=== PATIENT | male | born 1955 | race Caucasian/White ===

== ENCOUNTER 2017-06-20 19:00 | Observation (INO) | payer BC ==
[~2017-06-20] VITALS: Ht 177.8 cm; Wt 739.0 kg
[2017-06-20 19:05] VITALS: BP 194/99; PULSE 97; RESP 16; TEMP 97.7; O2SAT 100
[2017-06-20 19:35] VITALS: BP 174/92; PULSE 81; RESP 16; O2SAT 100
[2017-06-20 20:00] VITALS: BP_SYST 158; BP_SYST 171; BP_SYST 188; BP_DIAS 85; BP_DIAS 88; BP_DIAS 97; RESP 16
[2017-06-20] MEDS ORDERED: SODIUM CHLORIDE 0.9% FLUSH 10 ML FLUSH IVF PRN (20:00)
--- NOTE | 2017-06-20 20:06 | PD ---
HPI Chief Complaint: Dizziness Time Seen by Provider: 19:53 Travel History International Travel<30 days: No Contact w/Intl Traveler<30days: No Traveled to known affect area: No History of Present Illness HPI 62-year-old male presents to the emergency department by private transportation the care of family for an episode of double vision that occurred around 3:30 to 3:45 this afternoon of approximately 5 minutes duration. Patient states he also had brief dizziness that has also resolved. Patient states she's been left with residual fatigue. Patient states he also had an episode of a rapid heartbeat and broke out into a sweat which is also resolved. On his way home from [place] where the event occurred he has had episodes of sweats and chills. Patient denies any fever. Patient states that proximal me 3:30 to see 40 5 PM this afternoon most sitting at his desk and [place] he was looking at some papers and at his computer and briefly experienced double vision while he was trying to read the computer and the paperwork and when he looked across the [place]. Patient not have headache did not have confusion did not have loss of vision did not have any type of nausea or vomiting also did not experience any weakness of the upper or lower extremities. Patient states he was able to interact and converse appropriately with his colleagues and subsequently decided to drive 1 mile to his son's place of work as he works nearby and had no difficulty with ambulating or driving his vehicle. Patient states en route to his way home he thought perhaps his blood sugar was low and did purchase of soda which he drank and then has to stop 2 times because of urinary frequency. Patient has a history of a sinus tachycardia which was reportedly evaluated by cardiology and was cleared approximately a year or urinary half ago and has not seen a software developer since also is followed by Dr. Aguilar is his primary care provider and was treated by Dr. Estrada in 2009 prostate cancer with prostatectomy. Patient states he takes an [id number] Fish oil and cinnamon for management of borderline cholesterol issues and blood sugar issues. Patient did not have diagnosed hypertension. Patient does not take any prescription medications. Patient is a nonsmoker. Patient occasionally drinks alcohol at dinner. Patient's had no recent febrile illness. Patient currently has no symptoms other than feeling mildly fatigued at this time. Patient states he had something similar to this approximately 2 years ago and was not evaluated for that episode and decided that he should be evaluated today. Patient denies headache, loss of vision, facial weakness, confusion, difficulty with speech, difficulty swallowing, upper or lower extremity numbness tingling or weakness, balance disturbance, palpitations, chest pain, shortness of breath, nausea, vomiting, referred neck, jaw, shoulder, arms, back , or abdominal pain, denies abdominal cramping or diarrhea, denies any injury, denies any recent long distance travel, denies any recent surgical procedure or protracted bedrest, denies any febrile illness. Patient rates pain 0/10 in intensity. Patient again states episode of visual disturbance last approximately 5 minutes and has not been recurrent. PFSH Past Medical History Narrative Medical Sinus tachycardia, borderline cholesterol issues, borderline blood sugar issues , prostate cancer; prostatectomy; no tobacco use: Nursing notes reviewed Cardiovascular Problems: Yes (sinus tach) Respiratory: Yes Social History Alcohol Use: Yes Tobacco Use: No Allergies-Medications (Allergen,Severity, Reaction): Uncoded Allergies: bronchial dilaters (Adverse Reaction, Unknown, tachycardia, 06/20/17) Reported Meds & Prescriptions Reported Meds & Active Scripts Active Reported Allopurinol 300 Mg Tab 300 Mg PO DAILY Narrative Medication no prescription medications Review of Systems Except as stated in HPI: all other systems reviewed are Neg General / Constitutional: No: Fever, Chills Eyes: Positive: Diploplia ("approximately 5 minutes duration around 3:30PM or 3 :45 PM), No: Blurred Vision, Photophobia, Drainage HENT: Positive: Lightheadedness, No: Headaches, Vertigo Cardiovascular: Positive: Tachycardia, Diaphoresis, No: Chest Pain or Discomfort, Palpitations Respiratory: No: Shortness of Breath Gastrointestinal: No: Nausea, Vomiting, Diarrhea, Abdominal Pain Genitourinary: No: Dysuria Musculoskeletal: No: Myalgias, Arthralgias Skin: No Rash Neurologic: Positive: Weakness, Dizziness (brief not now), No: Syncope, Focal Abnormalities, Coordination Problem, Ataxia, Headache, Change in Mentation, Slurred Speech, Paresthesia, Incontinence, Seizures, Sensory Disturbance Psychiatric: No: Anxiety Hematologic/Lymphatic: No: Lymph Node Enlargement Physical Exam Narrative GENERAL: Well-developed well-nourished male in no acute distress no respiratory distress articulate with GCS of 15 SKIN: Warm and dry. HEAD: Atraumatic. Normocephalic. EYES: Pupils equal and round. Extraocular muscles intact. No scleral icterus. No injection or drainage. ENT: No nasal bleeding or discharge. Mucous membranes pink and moist. NECK: Trachea midline. No JVD. No carotid bruits. CARDIOVASCULAR: Regular rate and rhythm. RESPIRATORY: No accessory muscle use. Clear to auscultation. Breath sounds equal bilaterally. GASTROINTESTINAL: Abdomen soft, non-tender, nondistended. Hepatic and splenic margins not palpable. MUSCULOSKELETAL: Extremities without clubbing, cyanosis, or edema. No obvious deformities. NEUROLOGICAL: Awake and alert. No obvious cranial nerve deficits. Motor grossly within normal limits. Five out of 5 muscle strength in the arms and legs. Sensory exam grossly intact as tested bilaterally. No pronator drift. No limb ataxia. DTRs 2+ and equal. Normal speech. PSYCHIATRIC: Appropriate mood and affect; insight and judgment normal. Data Data Last Documented VS Vital Signs Date Time Temp Pulse Resp B/P (MAP) Pulse Ox O2 Delivery O2 Flow Rate FiO2 06/20/17 21:20 83 16 144/83 (103) 100 Room Air 06/20/17 19:05 97.7 Orders Orders Electrocardiogram (06/20/17 19:54) Prothrombin Time / Inr (Pt) (06/20/17 19:54) Act Partial Throm Time (Ptt) (06/20/17 19:54) Complete Blood Count With Diff (06/20/17 19:54) Comprehensive Metabolic Panel (06/20/17 19:54) Creatine Kinase (Cpk) (06/20/17 19:54) Troponin I (06/20/17 19:54) Urinalysis - C+S If Indicated (06/20/17 19:54) Ct Brain W/O Iv Contrast(Rout) (06/20/17 19:54) Chest, Single Ap (06/20/17 19:54) Ecg Monitoring (06/20/17 19:54) Iv Access Insert/Monitor (06/20/17 19:54) Oximetry (06/20/17 19:54) Sodium Chloride 0.9% Flush (Ns Flush) (06/20/17 20:00) Orthostatic Vital Signs (06/20/17 19:54) Magnesium (Mg) (06/20/17 19:54) Thyroid Stimulating Hormone (06/20/17 19:54) Blood Glucose (06/20/17 20:07) Admit Order (Ed Use Only) (06/20/17 ) Certified Court Interpreter / Telemetry PAMELA.Q8H (06/20/17 21:27) Diet Heart Healthy (06/21/17 Breakfast) Activity Oob With Assistance (06/20/17 21:27) Notify Dr: Other (06/20/17 21:27) Labs Laboratory Tests Test 06/20/17 20:00 06/20/17 20:20 Urine Color YELLOW Urine Turbidity CLEAR Urine pH 7.5 Urine Specific [place] 1.009 Urine Protein NEG mg/dL Urine Glucose (UA) NEG mg/dL Urine Ketones NEG mg/dL Urine Occult Blood NEG Urine Nitrite NEG Urine Bilirubin NEG Urine Leukocyte Esterase NEG Urine Squamous Epithelial Cells 0-5 /hpf Microscopic Urinalysis Comment CATH-CULT NOT IND White Blood Count 5.3 TH/MM3 Red Blood Count 5.24 MIL/MM3 Hemoglobin 16.9 GM/DL Hematocrit 49.9 % Mean Corpuscular Volume 95.2 FL Mean Corpuscular Hemoglobin 32.1 PG Mean Corpuscular Hemoglobin Concent 33.8 % Red Cell Distribution Width 12.4 % Platelet Count 223 TH/MM3 Mean Platelet Volume 7.0 FL Neutrophils (%) (Auto) 72.3 % Lymphocytes (%) (Auto) 18.9 % Monocytes (%) (Auto) 6.0 % Eosinophils (%) (Auto) 0.8 % Basophils (%) (Auto) 2.0 % Neutrophils # (Auto) 3.9 TH/MM3 Lymphocytes # (Auto) 1.0 TH/MM3 Monocytes # (Auto) 0.3 TH/MM3 Eosinophils # (Auto) 0.0 TH/MM3 Basophils # (Auto) 0.1 TH/MM3 CBC Comment AUTO DIFF Prothrombin Time 10.9 SEC Prothromb Time International Ratio 1.0 RATIO Activated Partial Thromboplast Time 31.1 SEC Blood Urea Nitrogen 16 MG/DL Creatinine 1.10 MG/DL Random Glucose 92 MG/DL Total Protein 7.9 GM/DL Albumin 4.3 GM/DL Calcium Level 9.0 MG/DL Magnesium Level 2.4 MG/DL Alkaline Phosphatase 52 U/L Aspartate Amino Transf (AST/SGOT) 37 U/L Alanine Aminotransferase (ALT/SGPT) 36 U/L Total Bilirubin 0.7 MG/DL Sodium Level 140 MEQ/L Potassium Level 4.1 MEQ/L Chloride Level 103 MEQ/L Carbon Dioxide Level 28.9 MEQ/L Anion Gap 8 MEQ/L Estimat Glomerular Filtration Rate 68 ML/MIN Total Creatine Kinase 275 U/L Troponin I LESS THAN 0.02 NG/ML Thyroid Stimulating Hormone 3rd Gen 3.530 uIU/ML MDM Medical Decision Making Medical Screen Exam Complete: Yes Emergency Medical Condition: Yes Medical Record Reviewed: Yes Interpretation(s) EKG: Normal sinus rhythm rate [address] elevation injury pattern or ectopy noted normal axis and intervals UA: wnl Last Impressions Head CT 06/20/171953 Signed Impressions: Service Date/Time: June 20:13 - CONCLUSION: Normal examination. Parvez Bruce MD Chest X-Ray 06/20/171953 Signed Impressions: Service Date/Time: June 20:03 - CONCLUSION: Normal examination. Parvez Bruce MD Differential Diagnosis TIA, CVA, arrhythmia, electrolyte disturbance, ACS, dissection, viral syndrome Narrative Course Patient placed on site monitor with continuous pulse oximetry; NIHSS:0 @ 9:20 NIHSS: 0, denies any recurrent visual disturbance; ambulated to the bathroom without vision disturbance or balance disturbance. Patient states after he turned quickly after using the bathroom he had transient seconds induration dizziness that resolved spontaneously and had no recurrence of this and had no effect on his ability to ambulate back to the exam room. Discussed patient with on-call [facility] [place] MD Dr Braswell will admit for TIA OBS to her service with MR studies and neurology consult in the a.m. Physician Communication Physician Communication discussed with Dr Braswell --OBS to [facility] service Diagnosis Primary Impression: TIA (transient ischemic attack) Admitting Information Admitting Physician Requests: Observation Debi Putnam MD Jun 20, 2017 20:06
[2017-06-20] MEDS ORDERED: ALLO300T2 PO (20:17)
--- NOTE | 2017-06-20 20:28 | RADRPT ---
EXAM DATE/TIME: 06/20/2017 20:03 [facility] COMPARISON: No previous studies available for comparison. INDICATIONS : Weakness, dizziness, and double vison today. MEDICAL HISTORY : None. SURGICAL HISTORY : None. ENCOUNTER: Initial ACUITY: 1 day PAIN SCORE: 0/10 LOCATION: Bilateral chest FINDINGS: A single view of the chest demonstrates the lungs to be symmetrically aerated without evidence of mas s, infiltrate or effusion. The cardiomediastinal contours are unremarkable. Osseous structures are intact. CONCLUSION: Normal examination. Parvez Bruce MD on June 20, 2017 at 20:26 Board Certified Radiologist. This report was verified electronically.
[2017-06-20 20:39] VITALS: BP 146/83; PULSE 82; RESP 16; O2SAT 100
[2017-06-20 20:43] LABS: BLOOD, URINE NEG (NEG); GLUCOSE,URINE NEG (NEG); KETONE, URINE NEG (NEG); NITRITE,URINE NEG (NEG); PH, URINE 7.5 (5.0-8.5)
[2017-06-20 20:45] LABS: AUTOMATED NEUTROPHIL # 3.9 TH/MM3 (1.8-7.7); BASOPHIL # 0.1 TH/MM3 (0-0.2); EOSINOPHIL % 0.8 % (0.0-4.0); HEMATOCRIT 49.9 % (39.0-51.0); LYMPH % 18.9 % (9.0-44.0); MEAN CELL VOLUME 95.2 FL (80.0-100.0); MEAN CORPUSCULAR HEMOGLOBIN 32.1 PG (27.0-34.0); MEAN CORPUSCULAR HGB CONC 33.8 % (32.0-36.0); NEUT % 72.3 % (16.0-70.0); PLATELET COUNT 223 TH/MM3 (150-450); RED BLOOD COUNT 5.24 MIL/MM3 (4.50-5.90); RED CELL DISTRIBUTION WIDTH 12.4 % (11.6-17.2); WHITE BLOOD COUNT 5.3 TH/MM3 (4.0-11.0)
[2017-06-20 20:49] LABS: HEMO FLAGS AUTO DIFF
[2017-06-20 20:51] LABS: URINE COLOR YELLOW (YELLW/STRAW)
[2017-06-20 20:52] LABS: COMMENT (UR) CATH-CULT NOT IND; CULTURE IF INDICATED CATH CULTURE NOT IND; SQUAMOUS EPITHELIAL CELL URINE 0-5 /hpf (0-5)
--- NOTE | 2017-06-20 20:55 | RADRPT ---
EXAM DATE/TIME: 06/20/2017 20:13 [facility] COMPARISON: No previous studies available for comparison. INDICATIONS : Double vision today. No LOC or injury RADIATION DOSE: 61.10 CTDIvol (mGy) MEDICAL HISTORY : None SURGICAL HISTORY : None. ENCOUNTER: Initial ACUITY: 1 day PAIN SCALE: 0/10 LOCATION: cranial TECHNIQUE: Multiple contiguous axial images were obtained of the head. Using automated exposure control and adj ustment of the mA and/or kV according to patient size, radiation dose was kept as low as reasonably a chievable to obtain optimal diagnostic quality images. DICOM format image data is available electro nically for review and comparison. FINDINGS: CEREBRUM: The ventricles are normal for age. No evidence of midline shift, mass lesion, hemorrhage or acute in farction. No extra-axial fluid collections are seen. POSTERIOR FOSSA: The cerebellum and brainstem are intact. The 4th ventricle is midline. The cerebellopontine angle i s unremarkable. EXTRACRANIAL: The visualized portion of the orbits is intact. SKULL: The calvaria is intact. No evidence of skull fracture. CONCLUSION: Normal examination. Parvez Bruce MD on June 20, 2017 at 20:53 Board Certified Radiologist. This report was verified electronically.
[2017-06-20 20:58] LABS: CHLORIDE 103 MEQ/L (98-107); POTASSIUM 4.1 MEQ/L (3.5-5.1); SODIUM (NA) 140 MEQ/L (136-145)
[2017-06-20 21:02] LABS: ANION GAP 8 MEQ/L (5-15); BICARBONATE 28.9 MEQ/L (21.0-32.0); BLOOD UREA NITROGEN 16 MG/DL (7-18); MAGNESIUM 2.4 MG/DL (1.5-2.5)
[2017-06-20 21:04] LABS: APTT (PATIENT) 31.1 SEC (24.3-30.1); PROTHROMBIN TIME - PATIENT 10.9 SEC (9.8-11.6)
[2017-06-20 21:05] LABS: ALT (GPT) 36 U/L (12-78); AST (GOT) 37 U/L (15-37); GLOMERULAR FILTRATION RATE 68 ML/MIN (>89)
[2017-06-20 21:07] LABS: TOTAL BILIRUBIN ADULT 0.7 MG/DL (0.2-1.0)
[2017-06-20 21:08] LABS: ALKALINE PHOSPHATASE 52 U/L (45-117); CREATINE KINASE 275 U/L (39-308)
[2017-06-20 21:20] VITALS: BP 144/83; PULSE 83; RESP 16; O2SAT 100
[2017-06-20] MEDS ORDERED: ASPIRIN 81 MG CHEW TAB CHEW ONE (21:30)
[2017-06-20] MEDS ORDERED: DEXTROSE 50% IN WATER 50 ML VIAL(D50) IV PUSH PRN (21:30)
[2017-06-20] MEDS ORDERED: LACTULOSE SYRUP 20 GM/30 ML CUP PO PRN (21:30)
[2017-06-20] MEDS ORDERED: BISACODYL 10 MG SUPP RECTAL PRN (21:30)
[2017-06-20] MEDS ORDERED: SENNOSIDES 8.6 MG TAB PO PRN (21:30)
[2017-06-20] MEDS ORDERED: GADODIAMIDE PF 287 MG/ML 20 ML VIAL (for RAD MRI) IV PUSH ONE (21:30)
[2017-06-20] MEDS ORDERED: SODIUM CHLORIDE 0.9% FLUSH 10 ML FLUSH IV FLUSH PRN (21:30)
[2017-06-20] MEDS ORDERED: GLUCAGON 1 MG/ML VIAL OTHER PRN (21:30)
[2017-06-20] MEDS ORDERED: ONDANSETRON HCL 4 MG/2 ML VIAL IVP PRN (21:30)
[2017-06-20] MEDS ORDERED: ENALAPRILAT 1.25 MG/ML VIAL IV PUSH PRN (21:30)
[2017-06-20] MEDS ORDERED: ACETAMINOPHEN/HYDROcodone 325 MG/5 MG TAB PO PRN (21:30)
[2017-06-20] MEDS ORDERED: ACETAMINOPHEN 325 MG TAB PO PRN (21:30)
[2017-06-20] MEDS ORDERED: MAGNESIUM HYDROXIDE SUSP 30 ML CUP PO PRN (21:30)
[2017-06-20 21:37] LABS: SCAN/DIFF AUTO DIFF CONFIRMED
[2017-06-20] MEDS ORDERED: MORPHINE SULFATE 2 MG/ML INJ IV PRN (21:45)
[2017-06-20] MEDS: SODIUM CHLOR 0.9% 1000 ML INJ 1,000 ML IV SCH (22:00)
[2017-06-20 22:18] VITALS: BP 138/85; PULSE 78; RESP 16; O2SAT 100
[2017-06-21] VITALS (11 sets, daily range): BP systolic 109–145; BP diastolic 61–91; PULSE 62–88; RESP 12–20; TEMP 96.5–98.5; O2SAT 95–99
[2017-06-21 05:24] LABS: AUTOMATED NEUTROPHIL # 2.3 TH/MM3 (1.8-7.7); BASOPHIL % 0.7 % (0.0-2.0); EOSINOPHIL # 0.1 TH/MM3 (0-0.4); EOSINOPHIL % 1.7 % (0.0-4.0); HEMATOCRIT 46.9 % (39.0-51.0); HEMO FLAGS DIFF FINAL; LYMPH % 38.6 % (9.0-44.0); LYMPHOCYTE # 1.8 TH/MM3 (1.0-4.8); MEAN CELL VOLUME 94.8 FL (80.0-100.0); MEAN CORPUSCULAR HEMOGLOBIN 31.3 PG (27.0-34.0); PLATELET COUNT 206 TH/MM3 (150-450); RED BLOOD COUNT 4.95 MIL/MM3 (4.50-5.90); WHITE BLOOD COUNT 4.7 TH/MM3 (4.0-11.0)
[2017-06-21] MEDS: SODIUM CHLOR 0.9% 1000 ML INJ 1,000 ML IV SCH (05:29)
[2017-06-21 05:38] LABS: CHLORIDE 107 MEQ/L (98-107); POTASSIUM 4.6 MEQ/L (3.5-5.1); SODIUM (NA) 143 MEQ/L (136-145)
[2017-06-21 05:42] LABS: ANION GAP 7 MEQ/L (5-15); BICARBONATE 29.4 MEQ/L (21.0-32.0); BLOOD UREA NITROGEN 16 MG/DL (7-18)
[2017-06-21 05:45] LABS: ALT (GPT) 32 U/L (12-78); AST (GOT) 21 U/L (15-37)
[2017-06-21 05:46] LABS: GLOMERULAR FILTRATION RATE 68 ML/MIN (>89)
[2017-06-21 05:47] LABS: TOTAL BILIRUBIN ADULT 0.9 MG/DL (0.2-1.0)
[2017-06-21 05:48] LABS: ALKALINE PHOSPHATASE 50 U/L (45-117)
[2017-06-21] MEDS: INSULIN ASPART SUPPLEMENTAL SCALE SQ SCH ×4 (07:48→21:00)
[2017-06-21] MEDS: SODIUM CHLORIDE 0.9% FLUSH 10 ML FLUSH IV FLUSH SCH ×2 (08:30→20:46)
[2017-06-21] MEDS: DOCUSATE SODIUM 50 MG/SENNA 8.6 MG TAB PO SCH ×2 (08:39→20:58)
[2017-06-21] MEDS ORDERED: ASPIRIN 81 MG CHEW TAB PO SCH (09:00)
[2017-06-21 09:33] LABS: HDL CHOLESTEROL 78.9 MG/DL (40.0-60.0); LDL CHOLESTEROL 96 MG/DL (0-99)
[2017-06-21] MEDS: ASPIRIN EC 325 MG TABEC PO SCH (11:22)
--- NOTE | 2017-06-21 13:40 | HHI.HP ---
[facility] Service [facility] Primary Care Physician Rick Aguilar DO Admission Diagnosis TIA Diagnoses: Travel History International Travel<30 Days: No Contact w/Intl Traveler <30 Da: No Traveled to Known Affected Are: No History of Present Illness This is a pleasant 62 year-old male with past medical history of borderline type 2 diabetes and borderline high cholesterol who presented to the ER complaining of a 5 minute history of horizontal diplopia. The patient works at a desk all day staring at computers and yesterday afternoon after being at his desk for several hours he looked up on the computer screens and had horizontal diplopia where 2 computer screens as 4. This was associated with some dizziness. The double vision went away when he covered either eye. He did not have any slurred speech paresthesias or unilateral weakness. After 5 minutes the symptoms went away. He did become somewhat anxious and had some palpitations and diaphoresis. He does not take aspirin. Review of Systems Constitutional: DENIES: Fever, Weight loss Eyes: COMPLAINS OF: Diplopia, DENIES: Eye pain, Vision loss Ears, nose, mouth, throat: DENIES: Throat pain, Odynophagia Respiratory: DENIES: Cough, Shortness of breath Cardiovascular: DENIES: Chest pain, Palpitations Gastrointestinal: DENIES: Abdominal pain, Vomiting Genitourinary: DENIES: Urgency, Dysuria Musculoskeletal: DENIES: Back pain, Neck pain Integumentary: DENIES: Pruritus, Rash Hematologic/lymphatic: DENIES: Lymphadenopathy Neurologic: DENIES: Abnormal gait, Headache Psychiatric: DENIES: Anxiety, Confusion Past Family Social History Past Medical History Borderline diabetes Borderline hyperlipidemia Gout Negative nuclear stress test in 2008 Heart murmur with trace valvular regurgitation followed by Dr. Ezequiel Jiménez Past Surgical History Pyloric stenosis surgery as an Radical prostatectomy in 2008 Bilateral inguinal hernia repair Right hydrocele surgery Pilonidal abscess I&D Right anterior cruciate ligament replacement in 1994 Reported Medications Allergies Uncoded Allergies Type Severity Reaction Last Updated Verified bronchial dilaters Adverse Reaction Unknown tachycardia 06/20/17 Active Scripts Medications Dose Route/Sig Max Daily Dose Days Date Category Allopurinol 300 Mg Tab 300 Mg PO DAILY 06/20/17 Reported Allergies: Uncoded Allergies: bronchial dilaters (Adverse Reaction, Unknown, tachycardia, 06/20/17) Family History His father had for TIAs Social History He smoked for a couple of years in his youth. Physical Exam Vital Signs Vital Signs Date Time Temp Pulse Resp B/P (MAP) Pulse Ox O2 Delivery O2 Flow Rate FiO2 06/21/17 08:12 21 06/21/17 08:00 97.7 88 12 145/91 (109) 98 06/21/17 06:27 98.0 78 20 118/74 (89) 99 06/21/17 02:35 99 21 06/21/17 01:26 82 06/21/17 00:15 98.0 78 18 112/74 (87) 99 06/20/17 23:18 06/20/17 22:18 78 16 138/85 (102) 100 Room Air 06/20/17 21:20 83 16 144/83 (103) 100 Room Air 06/20/17 20:39 82 16 146/83 (104) 100 Room Air 06/20/17 20:00 75 16 158/85 (109) 80 16 171/88 (115) 85 16 188/97 (127) 06/20/17 19:35 81 16 174/92 (119) 100 Room Air 06/20/17 19:35 100 Room Air 06/20/17 19:05 97.7 97 16 194/99 (130) 100 Physical Exam GENERAL: This is a well-nourished, well-developed patient, in no apparent distress. SKIN: No rashes, ecchymoses or lesions. Cool and dry. HEAD: Atraumatic. Normocephalic. EYES: Pupils equal round and reactive. Extraocular motions intact. No scleral icterus. No injection or drainage. NECK: Trachea midline. No JVD or lymphadenopathy. Supple, nontender, no meningeal signs. CARDIOVASCULAR: Regular rate and rhythm without murmurs, gallops, or rubs. RESPIRATORY: Clear to auscultation. Breath sounds equal bilaterally. No wheezes , rales, or rhonchi. GASTROINTESTINAL: Abdomen soft, non-tender, nondistended. No hepato-splenomegaly , or palpable masses. No guarding. MUSCULOSKELETAL: Extremities without clubbing, cyanosis, or edema. NEUROLOGICAL: Awake and alert. Cranial nerves II through XII intact. Motor and sensory grossly within normal limits. Five out of 5 muscle strength in all muscle groups. Normal speech. Laboratory Laboratory Tests Test 06/20/17 20:00 06/20/17 20:20 06/21/17 04:45 06/21/17 10:50 Urine Color YELLOW Urine Turbidity CLEAR Urine pH 7.5 Urine Specific [place] 1.009 Urine Protein NEG Urine Glucose (UA) NEG Urine Ketones NEG Urine Occult Blood NEG Urine Nitrite NEG Urine Bilirubin NEG Urine Leukocyte Esterase NEG Urine Squamous Epithelial Cells 0-5 Microscopic Urinalysis Comment CATH-CULT NOT IND White Blood Count 5.3 4.7 Red Blood Count 5.24 4.95 Hemoglobin 16.9 15.5 Hematocrit 49.9 46.9 Mean Corpuscular Volume 95.2 94.8 Mean Corpuscular Hemoglobin 32.1 31.3 Mean Corpuscular Hemoglobin Concent 33.8 33.0 Red Cell Distribution Width 12.4 12.0 Platelet Count 223 206 Mean Platelet Volume 7.0 7.1 Neutrophils (%) (Auto) 72.3 49.0 Lymphocytes (%) (Auto) 18.9 38.6 Monocytes (%) (Auto) 6.0 10.0 Eosinophils (%) (Auto) 0.8 1.7 Basophils (%) (Auto) 2.0 0.7 Neutrophils # (Auto) 3.9 2.3 Lymphocytes # (Auto) 1.0 1.8 Monocytes # (Auto) 0.3 0.5 Eosinophils # (Auto) 0.0 0.1 Basophils # (Auto) 0.1 0.0 CBC Comment AUTO DIFF DIFF FINAL Differential Comment AUTO DIFF CONFIRMED Prothrombin Time 10.9 Prothromb Time International Ratio 1.0 Activated Partial Thromboplast Time 31.1 Blood Urea Nitrogen 16 16 Creatinine 1.10 1.10 Random Glucose 92 88 Total Protein 7.9 6.6 Albumin 4.3 3.7 Calcium Level 9.0 8.4 Magnesium Level 2.4 Alkaline Phosphatase 52 50 Aspartate Amino Transf (AST/SGOT) 37 21 Alanine Aminotransferase (ALT/SGPT) 36 32 Total Bilirubin 0.7 0.9 Sodium Level 140 143 Potassium Level 4.1 4.6 Chloride Level 103 107 Carbon Dioxide Level 28.9 29.4 Anion Gap 8 7 Estimat Glomerular Filtration Rate 68 68 Total Creatine Kinase 275 Troponin I LESS THAN 0.02 Thyroid Stimulating Hormone 3rd Gen 3.530 Erythrocyte Sedimentation Rate 1 Triglycerides Level 144 Cholesterol Level 204 LDL Cholesterol 96 HDL Cholesterol 78.9 Cholesterol/HDL Ratio 2.58 Result Diagram: 06/21/175 06/21/17444 Imaging Last Impressions Head CT 06/20/171953 Signed Impressions: Service Date/Time: June 20:13 - CONCLUSION: Normal examination. Parvez Bruce MD Chest X-Ray 06/20/171953 Signed Impressions: Service Date/Time: June 20:03 - CONCLUSION: Normal examination. MD Urmila Norton VTE Risk Assessment Caprini VTE Risk Assessment: Mod/High Risk (score >= 2) Caprini Risk Assessment Model Point Value = 1 Point Value = 2 Point Value = 3 Point Value = 5 Age 41-60 Minor surgery BMI > 25 kg/m2 Swollen legs Varicose veins or History of unexplained or recurrent spontaneous Oral contraceptives or hormone replacement Sepsis (< 1 month) Serious lung disease, including pneumonia (< 1 month) Abnormal pulmonary function Acute myocardial infarction Congestive heart failure (< 1 month) History of inflammatory bowel disease Medical patient at bed rest Age 61-74 Arthroscopic surgery Major open surgery (> 45 min) Laparoscopic surgery (> 45 min) Malignancy Confined to bed (> 72 hours) Immobilizing plaster cast Central venous access Age >= 75 History of VTE Family history of VTE Factor V Leiden Prothrombin [id number] Lupus anticoagulant Anticardiolipin antibodies Elevated serum homocysteine Heparin-induced thrombocytopenia Other congenital or acquired thrombophilia Stroke (< 1 month) Elective arthroplasty Hip, pelvis, or leg fracture Acute spinal cord injury (< 1 month) Prophylaxis Regimen Total Risk Factor Score Risk Level Prophylaxis Regimen 0-1 Low Early ambulation 2 Moderate Order ONE of the following: *Sequential Compression Device (SCD) *Heparin 5000 units SQ BID 3-4 Higher Order ONE of the following medications: *Heparin 5000 units SQ TID *Enoxaparin/Lovenox 40 mg SQ daily (WT < 150 kg, CrCl > 30 mL/min) *Enoxaparin/Lovenox 30 mg SQ daily (WT < 150 kg, CrCl > 10-29 mL/min) *Enoxaparin/Lovenox 30 mg SQ BID (WT < 150 kg, CrCl > 30 mL/min) AND/OR *Sequential Compression Device (SCD) 5 or more Highest Order ONE of the following medications: *Heparin 5000 units SQ TID (Preferred with Epidurals) *Enoxaparin/Lovenox 40 mg SQ daily (WT < 150 kg, CrCl > 30 mL/min) *Enoxaparin/Lovenox 30 mg SQ daily (WT < 150 kg, CrCl > 10-29 mL/min) *Enoxaparin/Lovenox 30 mg SQ BID (WT < 150 kg, CrCl > 30 mL/min) AND *Sequential Compression Device (SCD) Assessment and Plan Problem List: (1) Diplopia ICD Code: H53.2 - Diplopia (2) HLD (hyperlipidemia) ICD Code: E78.5 - Hyperlipidemia, unspecified (3) Pre-diabetes ICD Code: R73.03 - Prediabetes (4) TIA (transient ischemic attack) ICD Code: G45.9 - Transient cerebral ischemic attack, unspecified Status: Acute Code Status Diplopia - possible TIA. Possible computer vision syndrome. Proceeding with MRI brain and an MRA, MRA neck, echocardiogram. Aspirin 325 mg daily. Myasthenia gravis labs pending as well. Holter monitor has been ordered. Discuss with Dr. Paulino/neurology Borderline diabetes - diet controlled. Will check an A1c. Borderline hyperlipidemia -lipid profile with LDL of 96 total cholesterol 204. He has started on pravastatin. Gout - continue allopurinol. DVT prophylaxis with SCDs Margaret Day MD Jun 21, 2017 13:40
[2017-06-21 13:47] LABS: RHEUMATOID FACTOR TRIGGER LESS THAN 10.0 IU/ML (0.0-14.9)
--- NOTE | 2017-06-21 13:55 | MB ---
cc: ENRICO SERRANO M.D. DATE OF CONSULTATION: 06/21/2017 HISTORY OF PRESENT ILLNESS This is a 62-year-old right-handed man with some mild hypercholesterolemia and prostate cancer. He does not take an aspirin a day. At about 3:30 p.m. yesterday he was on his computer at work when he had the sudden onset of double vision that lasted about 5 minutes. He had a little bit of palpitations and some diaphoresis, felt generally weak. It seemed to gradually go away. He covered one eye and then the other and the double vision did go away. He had double vision close up and at a distance. In distance it seemed to be slightly overlapped and it was a horizontal double vision. In September 2015 he was driving his car and had looked over to his mirror and back and everything seemed to go in slow motion but that was fairly self-limited. He has had a stress test that has been negative in the past. He has a history of a cardiac murmur. REVIEW OF SYSTEMS He denies any hypertension, diabetes, UT, major cardiac arrhythmia, stent, angioplasty, atrial fibrillation, Coumadin, CABG, renal, hepatic or pulmonary disease, thyroid disease, lupus, ulcer, cancer seizure or stroke. There is no asymmetrical weakness or numbness, ringing in the ears or vertigo. He does not have a headache. No chest pain. SOCIAL HISTORY He is not a smoker, has about two glasses of wine a day, lives his . FAMILY HISTORY Negative for cancer and seizure. Positive for stroke in his father. Denies any family history of miscarriages or significant blood clots. ALLERGIES HE IS ALLERGIC TO BRONCHODILATORS. MEDICATIONS He takes allopurinol. No new medications. He does not take an aspirin a day. PAST MEDICAL HISTORY As above. Also, history of sinus tachycardia. PHYSICAL EXAMINATION VITAL SIGNS: Afebrile. Heart rate 88, respiratory rate 12. When he first came in 194/99, now and as low as 118/74. NECK: There are no carotid bruits. HEART: Regular rhythm. I do not detect a murmur. NEUROLOGIC: Pupils are equal. Visual driver are full. Extraocular movements are intact without nystagmus. Disk is sharp on the right. Face is symmetric with normal sensation. Tongue is midline. There is no drift. He has normal strength in the upper and lower extremities bilaterally. DTRs are trace throughout. Toes are downgoing bilaterally. Pinprick is intact throughout. He is not ataxic on [id number]. Speech is fluent. He is not aphasic. LABORATORY CBC is normal. UA negative. Basic metabolic profile was normal. LFTs normal. Troponin negative. CPK normal. LDL cholesterol normal. Thyroid normal. Coags were normal. IMAGING He had a chest x-ray that was normal. He had a CAT scan of the brain that was read as normal. I reviewed those films. does in fact appear normal. I do not see anything in the elsi. He is sinus rhythm here. IMPRESSION Some transient diplopia. Could have been a TIA. No symptoms of myasthenia gravis. PLAN/RECOMMENDATIONS We will check an MRI of the brain, MRA t[place] of [place] and neck, and some additional blood work. I think an aspirin for now, 325, is appropriate. Will check an echocardiogram. If his echo is negative and his MRI and MRA are negative today, he could be discharged later and follow-up in the office. He should have a Holter monitor placed and will probably need some outpatient cardiac monitoring. Also check some myasthenia gravis labs. MD MERARI Mchugh/MARISSA /10:14 AM /1:44 PM
[2017-06-21 14:14] LABS: TOTAL PROTEIN SPE 6.7 GM/DL (6.0-7.6)
[2017-06-21] MEDS ORDERED: LORazepam 2 MG/ML VIAL IV PUSH ONE (15:30)
--- NOTE | 2017-06-21 16:10 | EKG ---
Date Performed: 06/20/2017 Time Performed: 20:32:57 PTAGE: 62 years EKG: Sinus rhythm NORMAL ECG NO PREVIOUS TRACING DOCTOR: Spike Silver Interpretating Date/Time 06/21/2017 16:08:30
[2017-06-21 17:44] LABS: HEMOGLOBIN A1a 1.1 %; HEMOGLOBIN A1b 1.3 %; HEMOGLOBIN Ao 86.4 %; HEMOGLOBIN P3 3.7 %
--- NOTE | 2017-06-21 18:37 | RADRPT ---
EXAM DATE/TIME: 06/21/2017 16:39 [facility] COMPARISON: MRI BRAIN W & W/O CONTRAST, June 21, 2017, 16:39. INDICATIONS : CVA. MEDICAL HISTORY : Hypertension. SURGICAL HISTORY : Right knee surgery. ENCOUNTER: Initial ACUITY: 2 day PAIN SCORE: 0/10 LOCATION: head Please note a normal MRA of the brain does not entirely exclude the possibility of a small aneurysm, nor the possibility of distal intracranial vessel disease. TECHNIQUE: 3D time of flight MRA was performed. Source images, multiplanar STS MIP, and 3D volume MIP reconstru ctions were reviewed. FINDINGS: There is excellent visualization of the major intracranial arteries out to the second-order branch ve ssels. There is no evidence for aneurysm, vessel truncation or stenosis, and no evidence for vascula r malformation. 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 CONCLUSION: Normal examination. Parvez Bruce MD on June 21, 2017 at 18:30 Board Certified Radiologist. This report was verified electronically.
--- NOTE | 2017-06-21 18:39 | RADRPT ---
EXAM DATE/TIME: 06/21/2017 16:39 [facility] COMPARISON: No previous studies available for comparison. INDICATIONS : Stroke. CONTRAST: 20 cc Omniscan (gadodiamide) IV MEDICAL HISTORY : Hypertension. SURGICAL HISTORY : Knee surgery ENCOUNTER: Initial ACUITY: 2 day PAIN SCORE: 0/10 LOCATION: neck Percent stenosis is calculated using the diameter of the stenotic region over the diameter of the nor mal distal internal carotid artery. TECHNIQUE: Bolus infused MRA of the extracranial circulation was performed using a neurovascular coil. Post pro cessing was performed including rotating subvolume maximum intensity projections of each carotid nay ry, rotating full volume maximum intensity projections of both carotid arteries, sagittal and coronal sliding thin slab reformations of each carotid artery, and left oblique sliding thin slab reformatio n through the aortic arch to include the origin of the arch branch vessels. FINDINGS: AORTIC ARCH: There is a three vessel origin of the great vessels from the aorta. No evidence of ostial narrowing. RIGHT CAROTID: The common carotid artery is intact. The carotid bulb has a normal configuration without ulceration or narrowing. The internal carotid artery lumen is smooth without stenosis. The external carotid ar jessica is intact. LEFT CAROTID: The common carotid artery is intact. The carotid bulb has a normal configuration without ulceration or narrowing. The internal carotid artery lumen is smooth without stenosis. The external carotid ar jessica is intact. VERTEBRALS: The vertebral arteries have a symmetric diameter. No stenotic lesions are seen. CONCLUSION: Normal examination. Parvez Bruce MD on June 21, 2017 at 18:36 Board Certified Radiologist. This report was verified electronically.
--- NOTE | 2017-06-21 20:22 | RADRPT ---
EXAM DATE/TIME: 06/21/2017 16:39 [facility] COMPARISON: No previous studies available for comparison. INDICATIONS : CVA. Vertigo/double vision. CONTRAST: 20 cc Omniscan (gadodiamide) IV MEDICAL HISTORY : Hypertension. SURGICAL HISTORY : Knee surgery. ENCOUNTER: Initial ACUITY: 2 day PAIN SCORE: 0/10 LOCATION: head TECHNIQUE: Multiplanar, multisequence MRI of the brain was performed both prior to and following the administrat ion of paramagnetic contrast. FINDINGS: CEREBRUM: The ventricles are normal for age. No evidence of midline shift, mass lesion, hemorrhage or acute in farction. No extraaxial fluid collections are seen. The pituitary gland and suprasellar cistern are normal in configuration. WHITE MATTER: No significant signal abnormalities are seen in the white matter. POSTERIOR FOSSA: The cerebellum and brainstem are intact. The 4th ventricle is midline. The cerebellopontine angle is unremarkable. The cerebellar tonsils are normal in position. DIFFUSION IMAGING: No focal areas of restricted diffusion are seen. No evidence of acute infarction. EXTRACRANIAL: The visualized portions of the orbits and paranasal sinuses are unremarkable. POST-CONTRAST: No abnormal areas of parenchymal or dural enhancement. No evidence of blood-brain barrier breakdown. CONCLUSION: Negative brain MRI examination. The cause of diplopia is not seen. Parvez Bruce MD on June 21, 2017 at 20:18 Board Certified Radiologist. This report was verified electronically.
[2017-06-21] MEDS ORDERED: PRAVASTATIN SOD 40 MG TAB PO SCH (21:00)
--- NOTE | 2017-06-21 21:57 | ECHRPT ---
Indication: CVA/TIA CONCLUSIONS Normal left ventricular size. Wall thickness is normal. Normal wall motion. The left ventricular systolic function is normal with an estimated ejection fraction in the range of 55-60%. Geolx-xj-ulke mitral valve regurgitation. There is trace tricuspid valve regurgitation. The estimated pulmonary arterial pressure is 25 mmHg. BP: 143 / 89 HR: Rhythm: Sinus MEASUREMENTS (Male / Female) Normal Values Technical Quality:Fair 2D ECHO LV Diastolic Diameter PLAX 4.5 cm 4.2 - 5.9 / 3.9 - 5.3 cm LV Systolic Diameter PLAX 3.4 cm IVS Diastolic Thickness 0.8 cm 0.6 - 1.0 / 0.6 - 0.9 cm LVPW Diastolic Thickness 0.8 cm 0.6 - 1.0 / 0.6 - 0.9 cm LV Relative Wall Thickness 0.4 LVOT Diameter 2.0 cm Aortic Root Diameter 3.3 cm LA Systolic Diameter LX 3.2 cm 3.0 - 4.0 / 2.7 - 3.8 cm M-MODE AV Cusp Separation MM 2.2 cm DOPPLER AV Peak Velocity 139.0 cm/s AV Peak Gradient 7.7 mmHg AV Mean Gradient 4.0 mmHg AV Velocity Time Integral 24.4 cm LVOT Peak Velocity 95.2 cm/s LVOT Peak Gradient 3.6 mmHg LVOT Velocity Time Integral 18.5 cm AV Area Cont Eq vti 2.4 cm AV Area Cont Eq pk 2.2 cm Mitral E Point Velocity 57.3 cm/s Mitral A Point Velocity 59.7 cm/s Mitral E to A Ratio 1.0 LV E' Lateral Velocity 10.3 cm/s Mitral E to LV E' Lateral Ratio 5.6 LV E' Septal Velocity 4.4 cm/s Mitral E to LV E' Septal Ratio 13.1 TR Peak Velocity 195.0 cm/s TR Peak Gradient 15.2 mmHg Right Atrial Pressure 10.0 mmHg Pulmonary Artery Systolic Pressu 25.2 mmHg Right Ventricular Systolic Press 25.2 mmHg PV Peak Velocity 69.9 cm/s PV Peak Gradient 2.0 mmHg FINDINGS LEFT VENTRICLE Normal left ventricular size. Wall thickness is normal. The left ventricular systolic function is normal with an estimated ejection fraction in the range of 55-60%. RIGHT VENTRICLE Normal right ventricular size and systolic function. LEFT ATRIUM The left atrial size is normal. RIGHT ATRIUM The right atrial size is normal. ATRIAL SEPTUM Normal atrial septal thickness without atrial level shunting by limited color doppler interrogation. AORTA The aortic root and proximal ascending aorta are normal in size on limited imaging. MITRAL VALVE [id number] mitral valve regurgitation. AORTIC VALVE Trileaflet aortic valve. No aortic valve stenosis or regurgitation. TRICUSPID VALVE There is trace tricuspid valve regurgitation. The estimated pulmonary arterial pressure is 25.2 mmHg. PULMONARY VALVE No pulmonary valve regurgitation or stenosis. VESSELS The inferior vena cava is normal in size. PERICARDIUM No pericardial effusion. Jacob Irvin MD (Electronically Signed) Final Date:21 June 2017 21:56
[2017-06-21 22:32] LABS: ALPHA 1 GLOBULIN 0.15 GM/DL (0.11-0.29); ALPHA 2 GLOBULIN 0.88 GM/DL (0.22-1.00); BETA GLOBULINS (SPE) 0.54 GM/DL (0.53-1.03)
[2017-06-22] VITALS: BP 109/61; PULSE 66; RESP 20; TEMP 98.5; O2SAT 95
[2017-06-22] MEDS: SODIUM CHLOR 0.9% 1000 ML INJ 1,000 ML IV SCH ×4 (02:40→16:32)
[2017-06-22 04:00] VITALS: BP 96/55; PULSE 65; RESP 20; TEMP 98.6; O2SAT 96
[2017-06-22 07:15] VITALS: PULSE 84
[2017-06-22] MEDS: INSULIN ASPART SUPPLEMENTAL SCALE SQ SCH ×3 (07:58→17:00)
[2017-06-22 08:00] VITALS: BP 111/72; PULSE 73; RESP 16; TEMP 97.2; O2SAT 98
[2017-06-22] MEDS: DOCUSATE SODIUM 50 MG/SENNA 8.6 MG TAB PO SCH (08:01)
[2017-06-22] MEDS: ASPIRIN EC 325 MG TABEC PO SCH (08:01)
[2017-06-22] MEDS: SODIUM CHLORIDE 0.9% FLUSH 10 ML FLUSH IV FLUSH SCH (09:00)
[2017-06-22 11:27] VITALS: BP 113/72; PULSE 85; RESP 16; TEMP 97.1; O2SAT 95
--- NOTE | 2017-06-22 15:04 | HHI.PR ---
Subjective Remarks Patient feels at his normal self, no diplopia. Objective Vitals Vital Signs Date Time Temp Pulse Resp B/P (MAP) Pulse Ox O2 Delivery O2 Flow Rate FiO2 06/22/17 11:27 97.1 85 16 113/72 (86) 95 06/22/17 08:00 97.2 73 16 111/72 (85) 98 06/22/17 07:15 84 06/22/17 04:00 98.6 65 20 96/55 (69) 96 06/22/17 00:00 98.5 66 20 109/61 (77) 95 06/21/17 20:10 77 06/21/17 20:00 97.2 62 18 115/76 (89) 97 06/21/17 20:00 98.5 66 20 109/61 (77) 95 06/21/17 19:44 97 21 06/21/17 17:46 96.5 76 17 114/80 (91) 96 I/O 06/21/17 06/21/17 06/21/17 06/22/17 06/22/17 06/22/17 07:00 15:00 23:00 07:00 15:00 23:00 Intake Total 240 ml 240 ml 790 ml 943 ml 960 ml Balance 240 ml 240 ml 790 ml 943 ml 960 ml Intake Oral 240 ml 240 ml 240 ml 240 ml 960 ml IV Total 550 ml 703 ml # Voids 2 13 3 2 # Bowel Movements 0 0 2 1 Result Diagram: 06/21/175 06/21/17444 Objective Remarks GENERAL: Well-nourished, well-developed patient. SKIN: Warm and dry. HEAD: Normocephalic. EYES: No scleral icterus. No injection or drainage. EOMI. NECK: Supple, trachea midline. No JVD or lymphadenopathy. CARDIOVASCULAR: Regular rate and rhythm without murmurs, gallops, or rubs. RESPIRATORY: Breath sounds equal bilaterally. No accessory muscle use. GASTROINTESTINAL: Abdomen soft, non-tender, nondistended. EXTREMITIES: No cyanosis, or edema. NEUROLOGICAL: Awake, alert, and oriented x 3. Non-focal. A/P Problem List: (1) Diplopia ICD Code: H53.2 - Diplopia (2) HLD (hyperlipidemia) ICD Code: E78.5 - Hyperlipidemia, unspecified (3) Pre-diabetes ICD Code: R73.03 - Prediabetes (4) TIA (transient ischemic attack) ICD Code: G45.9 - Transient cerebral ischemic attack, unspecified Status: Acute Assessment and Plan Diplopia - possible TIA. Possible computer vision syndrome. Negative MRI brain and an MRA, MRA neck, echocardiogram (trace MV and TV regurg). Aspirin 325 mg daily. LDL 96. Myasthenia gravis labs pending as well. Holter monitor has been ordered. Discussed with Dr. Paulino/neurology. Borderline diabetes - diet controlled. A1c 5.1. Borderline hyperlipidemia -lipid profile with LDL of 96 total cholesterol 204. He has started on pravastatin. Gout - continue allopurinol. DVT prophylaxis with SCDs DC home. F/u with Dr. Paulino 2 weeks. Margaret Day MD Jun 22, 2017 15:04
[2017-06-22] MEDS ORDERED: ATOR40TA16 PO (15:17)
[2017-06-22] MEDS ORDERED: ASPI325T33 PO (15:17)
--- NOTE | 2017-06-22 15:19 | HHI.PR ---
Subjective Remarks sr Objective Vital Signs Date Time Temp Pulse Resp B/P (MAP) Pulse Ox O2 Delivery O2 Flow Rate FiO2 06/22/17 11:27 97.1 85 16 113/72 (86) 95 06/22/17 08:00 97.2 73 16 111/72 (85) 98 06/22/17 07:15 84 06/22/17 04:00 98.6 65 20 96/55 (69) 96 06/22/17 00:00 98.5 66 20 109/61 (77) 95 06/21/17 20:10 77 06/21/17 20:00 97.2 62 18 115/76 (89) 97 06/21/17 20:00 98.5 66 20 109/61 (77) 95 06/21/17 19:44 97 21 06/21/17 17:46 96.5 76 17 114/80 (91) 96 I/O 06/21/17 06/21/17 06/21/17 06/22/17 06/22/17 06/22/17 07:00 15:00 23:00 07:00 15:00 23:00 Intake Total 240 ml 240 ml 790 ml 943 ml 960 ml Balance 240 ml 240 ml 790 ml 943 ml 960 ml Intake Oral 240 ml 240 ml 240 ml 240 ml 960 ml IV Total 550 ml 703 ml # Voids 2 13 3 2 # Bowel Movements 0 0 2 1 Result Diagram: 06/21/1744406/21/17444 Objective Remarks nl exam no more diplopia Assessment and Plan Assessment and Plan imp sr echo nlldl 96 labs neg holter pend mg labs pend mri neg mra copw neg mra neck cannot see distal verts needs cta i have ordered and can dc on asa 325 if cta neg vb dz Jean Claude Paulino MD Jun 22, 2017 15:19
[2017-06-22 15:49] VITALS: BP 123/74; PULSE 84; RESP 16; TEMP 97.1; O2SAT 97
[2017-06-22] MEDS ORDERED: IOHEXOL 350 MG/ML 10 ML VIAL (for RAD DIAG) IVCONTRAST ONE (16:35)
--- NOTE | 2017-06-22 17:12 | RADRPT ---
EXAM DATE/TIME: 06/22/2017 16:20 [facility] COMPARISON: MRI BRAIN W & W/O CONTRAST, June 21, 2017, 16:39. MRA BRAIN W/O CONTRAST, June 21, 2017, 16 :39. MRA CAROTIDS W CONTRAST, June 21, 2017, 16:39. INDICATIONS : Diplopia that lasted 5 minutes. Dizziness. IV CONTRAST: 100 cc Omnipaque 350 (iohexol) IV ; Cumulative dose for multiple exams. RADIATION DOSE: 43.12 CTDIvol (mGy) ; Combined studies MEDICAL HISTORY : Cardiovascular disease. Diabetes mellitus type 2. Hypercholesterolemia.Cancer, prostate 2009 SURGICAL HISTORY : None. ENCOUNTER: Initial ACUITY: 2 days PAIN SCALE: 0/10 LOCATION: cranial TECHNIQUE: Volumetric scanning was performed using a multi-row detector CT scanner. The data was post processed with a variety of visualization algorithms including full volume maximum intensity projection, multi -planar sliding thin slab reformation, curved planar reformation, and surface rendering techniques. Using automated exposure control and adjustment of the mA and/or kV according to patient size, radiat ion dose was kept as low as reasonably achievable to obtain optimal diagnostic quality images. DICO M format image data is available electronically for review and comparison. FINDINGS: There is excellent visualization of the major intracranial arteries out to the second-order branch ve ssels. There is no evidence for aneurysm, vessel truncation or stenosis, and no evidence for vascula r malformation. There is mild crescentic calcific and soft plaque deposition of the right carotid bulb without eviden ce for hemodynamically significant stenosis. CONCLUSION: Mild plaque deposition right carotid bulb without evidence for hemodynamically significant stenosis. Normal appearance of the intracranial circulation. Carlos Boyce MD on June 22, 2017 at 17:09 Board Certified Radiologist. This report was verified electronically.
--- NOTE | 2017-06-22 17:42 | RADRPT ---
EXAM DATE/TIME: 06/22/2017 16:20 [facility] COMPARISON: CTA BRAIN W 3D RECON, June 22, 2017, 16:20. MRA BRAIN W/O CONTRAST, June 21, 2017, 16:39. M RI BRAIN W & W/O CONTRAST, June 21, 2017, 16:39. MRA CAROTIDS W CONTRAST, June 21, 2017, 16 :39. CT BRAIN W/O CONTRAST, June 20, 2017, 20:13. INDICATIONS : Diplopia that lasted 5 minutes, dizziness. IV CONTRAST: 100 cc Omnipaque 350 (iohexol) IV ; Cumulative dose for multiple exams. RADIATION DOSE: 43.12 CTDIvol (mGy) ; Combined studies MEDICAL HISTORY : Cardiovascular disease. Hypercholesterolemia. Diabetes mellitus type 2.Cancer, prostate 2009 SURGICAL HISTORY : None. ENCOUNTER: Initial ACUITY: 2 days PAIN SCALE: 0/10 LOCATION: neck Elevated flow velocities and ICA/CCA ratios have been found to correlate with increased degrees of vessel stenosis, calculated as percentage of diameter relative to a normal segment of distal ICA/CCA. TECHNIQUE: Volumetric scanning was performed using a multirow detector CT scanner. The data was post processed with a variety of visualization algorithms including full-volume maximum intensity projection, multip lanar sliding thin-slab reformation, curved-planar reformation, and surface-rendering techniques. Us ing automated exposure control and adjustment of the mA and/or kV according to patient size, radiatio n dose was kept as low as reasonably achievable to obtain optimal diagnostic quality images. DICOM f ormat image data is available electronically for review and comparison. FINDINGS: AORTIC ARCH: There is a three-vessel origin of the great vessels from the aorta. No evidence of ostial narrowing. RIGHT CAROTID: The common carotid artery is intact. The carotid bulb has a normal configuration without ulceration o r narrowing. There is mild crescentic calcific and soft plaque of the right carotid bulb with no sign ificant stenosis. The internal carotid artery lumen is smooth without stenosis. The external carotid artery is intact. LEFT CAROTID: The common carotid artery is intact. The carotid bulb has a normal configuration without ulceration or narrowing. The internal carotid artery lumen is smooth without stenosis. The external carotid ar jessica is intact. VERTEBRALS: The vertebral arteries have a symmetric diameter. No stenotic lesions are seen. CONCLUSION: Minimal calcific and soft plaque deposition of the right proximal internal carotid artery. No evidenc e for hemodynamically significant stenosis. Carlos A. Austen, MD on June 22, 2017 at 17:38 Board Certified Radiologist. This report was verified electronically.
--- NOTE | 2017-06-23 12:21 | HM ---
Date Performed: 06/21/2017 Time Performed: 20:00:00 HOOKUP DATE: 06/21/17 08:00:00 PM Fri ANALYSIS START TIME: 06/21/2017 8:05:00 PM ANALYSIS END TIME: 06/22/2017 4:24:26 PM PATIENT AGE: 62 PATIENT HEIGHT PATIENT WEIGHT DRUG LIST PATIENT DIAGNOSIS TEST NARRATIVE: The patient's average heart rate was 76 BPM. No episodes of tachycardia wer e noted. No episodes of bradycardia were noted. No pauses exceeding 2.0 seconds were noted. 4 ventricular ectopics, which represented < 1% of the total beat count, were noted. The highest vent ricular ectopic frequency occurred from 09:00 PM to 10:00 PM Fri. During this time 1 VE(s) occurred. Ventricular ectopics were observed as 4 isolated beat(s) only. No couplets or runs were noted. 4 supraventricular ectopics, which represented < 1% of the total beat count, were noted. The highes t supraventricular ectopic frequency occurred from 11:00 PM to 12:00 AM Sat. During this time 1 SVE( s) occurred. No episodes of ST depression (defined as -1.0 mm or more) were noted in channel 1. No episodes of ST depression (defined as -1.0 mm or more) were noted in channel 2. No episodes of ST depression (defined as -1.0 mm or more) were noted in channel 3. TEST INTERPRETATION: Holter monitor demonstrates Sinus rhythm . Rare PAC and PVC was seen. Holter was otherwise normal. Signed by : Jean Claude Romo
[2017-06-24 13:25] LABS: ANA SCREEN NEG (NEG)
[2017-06-25 13:53] LABS: ACETYLCHOLINE REC BINDING LESS THAN 0.30 nmol/L
[2017-06-25 15:54] LABS: STRIATED MUCLE AB TITER ND (<1:40)
== END 2017-06-22 18:03 | disposition home or self-care (01) ==
LOC: PHED 19:00 → PHEDA 21:29 → PH3B 23:09
PROVIDERS: ADMIT Family Medicine; ATTEND Family Medicine
DX: G45.9 Transient cerebral ischemic attack, unspecified (principal); H53.2 Diplopia; E78.5 Hyperlipidemia, unspecified; R73.03 Prediabetes; C61 Malignant neoplasm of prostate; M10.9 Gout, unspecified; Z79.82 Long term (current) use of aspirin
CPT/HCPCS: 70450; 70496; 70498; 70544; 70548; 70553; 71010; 80053; 80061; 81001; 82550; 82607; 82746; 82948; 83036; 83519; 83735; 84165; 84425; 84443; 84484; 85025; 85610; 85652; 85730; 86038; 86140; 86255; 86430; 86592; 93005; 93225; 93226; 93306; 96361; 96374; 99285; A9579; G0378; J2060; J7030; Q9967